=== PATIENT | female | born 1965 | race Caucasian/White ===

== ENCOUNTER → 2020-12-13 | Outpatient (CLI) | payer OTHER ==
[~2020-12-13] MED LIST: ATIVAN1 MG PO; CIPRO500 MG PO; CLARITIN10 MG PO; FLAGYL500 MG PO; MOBIC15 MG PO; MOTRIN IB200 MG PO; NORCO 325 MG-7.1 TAB PO; ZYRTEC10 MG PO; Zofran4 MG PO
== END | disposition home or self-care (01) ==
LOC: COVID19 14:38
PROVIDERS: ATTEND Family Medicine
DX: Z11.52 Encounter for screening for COVID-19 (principal)

== ENCOUNTER 2021-03-03 18:14 | Emergency (ER) | payer OTHER ==
[2021-03-03] MEDS ORDERED: AUGMENTIN 875875 MG PO ×3 (19:58→20:24)
== END 2021-03-03 20:20 | disposition home or self-care (01) ==
LOC: ED 18:14
DX: S61.512A Laceration without foreign body of left wrist, initial encounter (principal); M79.632 Pain in left forearm; Z79.899 Other long term (current) drug therapy; Z79.2 Long term (current) use of antibiotics; Z98.890 Other specified postprocedural states; Z98.51 Tubal ligation status; W54.0XXA Bitten by dog, initial encounter; Y93.89 Activity, other specified; Y92.89 Other specified places as the place of occurrence of the external cause; Y99.8 Other external cause status

== ENCOUNTER 2023-03-30 11:28 | Emergency (ER) | payer SELFPAY ==
[~2023-03-30] VITALS: Ht 167.6 cm; Wt 99.8 kg
[~2023-03-30 11:28] MED LIST changes: +AUGMENTIN 875875 MG PO
== END 2023-03-30 13:05 | disposition home or self-care (01) ==
LOC: ED 11:28
DX: S92.332A Displaced fracture of third metatarsal bone, left foot, initial encounter for closed fracture (principal); Z98.51 Tubal ligation status; Z98.890 Other specified postprocedural states; Z88.8 Allergy status to other drugs, medicaments and biological substances; W01.0XXA Fall on same level from slipping, tripping and stumbling without subsequent striking against object, initial encounter; Y93.89 Activity, other specified; Y92.89 Other specified places as the place of occurrence of the external cause; Y99.8 Other external cause status

== ENCOUNTER → 2023-04-04 | Outpatient (CLI) | payer SELFPAY | END | disposition home or self-care (01) | LOC: CT 09:46 | PROVIDERS: ATTEND Orthopaedic Surgery | DX: S92.242A Displaced fracture of medial cuneiform of left foot, initial encounter for closed fracture (principal); S92.322A Displaced fracture of second metatarsal bone, left foot, initial encounter for closed fracture; S92.332A Displaced fracture of third metatarsal bone, left foot, initial encounter for closed fracture; S92.342A Displaced fracture of fourth metatarsal bone, left foot, initial encounter for closed fracture; S93.622A Sprain of tarsometatarsal ligament of left foot, initial encounter; X58.XXXA Exposure to other specified factors, initial encounter; Y93.89 Activity, other specified; Y92.89 Other specified places as the place of occurrence of the external cause; Y99.8 Other external cause status ==

== ENCOUNTER → 2023-04-10 | Day surgery (SDC) | payer MEDICAID ==
[2023-04-08 12:06] VITALS: BP 118/70
[2023-04-08 13:36] LABS: BUN 12 mg/dl (9-23); CHLORIDE 106 mmol/L (98-107); POTASSIUM 4.4 mmol/L (3.4-5.1)
[~2023-04-10] VITALS: Ht 167.6 cm; Wt 2.4 kg
[~2023-04-10] MED LIST changes: +ECOTRIN81 M1 PO; +PERCOCET 5-3251 EACH PO
[2023-04-10 12:16] VITALS: BP 118/51
[2023-04-10 17:29] VITALS: BP 129/55
[2023-04-10 17:45] VITALS: BP 106/39
[2023-04-10 17:59] VITALS: BP 135/66
[2023-04-10 18:15] VITALS: BP 133/61
[2023-04-10 18:28] VITALS: BP 130/62
== END ==
LOC: SDC 04-08 12:30
PROVIDERS: ATTEND Orthopaedic Surgery
DX: S93.322A Subluxation of tarsometatarsal joint of left foot, initial encounter (principal); F41.9 Anxiety disorder, unspecified; M19.90 Unspecified osteoarthritis, unspecified site; F17.210 Nicotine dependence, cigarettes, uncomplicated; Z98.891 History of uterine scar from previous surgery; Z98.890 Other specified postprocedural states; X58.XXXA Exposure to other specified factors, initial encounter; Y92.89 Other specified places as the place of occurrence of the external cause; Y93.89 Activity, other specified; Y99.8 Other external cause status

== ENCOUNTER → 2023-04-25 | Outpatient (CLI) | payer MEDICAID | END | disposition home or self-care (01) | LOC: ORTHO 00:44 | PROVIDERS: ATTEND Orthopaedic Surgery | DX: S92.345D Nondisplaced fracture of fourth metatarsal bone, left foot, subsequent encounter for fracture with routine healing (principal); X58.XXXD Exposure to other specified factors, subsequent encounter ==

== ENCOUNTER → 2023-05-16 | Outpatient (CLI) | payer MEDICAID | END | disposition home or self-care (01) | LOC: ORTHO 01:11 | PROVIDERS: ATTEND Orthopaedic Surgery | DX: S92.345D Nondisplaced fracture of fourth metatarsal bone, left foot, subsequent encounter for fracture with routine healing (principal); X58.XXXD Exposure to other specified factors, subsequent encounter ==

== ENCOUNTER → 2023-06-06 | Outpatient (CLI) | payer MEDICAID | END | disposition home or self-care (01) | LOC: ORTHO 01:01 | PROVIDERS: ATTEND Orthopaedic Surgery | DX: S92.345D Nondisplaced fracture of fourth metatarsal bone, left foot, subsequent encounter for fracture with routine healing (principal); M19.072 Primary osteoarthritis, left ankle and foot; X58.XXXD Exposure to other specified factors, subsequent encounter ==

== ENCOUNTER → 2023-07-09 | Outpatient (CLI) | payer MEDICAID | END | disposition home or self-care (01) | LOC: ORTHO 01:45 | PROVIDERS: ATTEND Orthopaedic Surgery | DX: S92.345D Nondisplaced fracture of fourth metatarsal bone, left foot, subsequent encounter for fracture with routine healing (principal); X58.XXXD Exposure to other specified factors, subsequent encounter ==